=== PATIENT | female | born 1960 | race Caucasian/White ===

== ENCOUNTER 2019-05-13 19:45 | Emergency (ER) | payer OTHER ==
[2019-05-13 20:07] VITALS: BP 122/74; PULSE 66
--- NOTE | 2019-05-13 21:48 | EDM.PDOC ---
ED HPI GENERAL MEDICAL PROBLEM - General Chief Complaint: Lower Extremity Injury/Pain Stated Complaint: possible broken ankle Time Seen by Provider: 05/13/19 21:11 Source of Information: Reports: Patient, RN Notes Reviewed History Limitations: Reports: No Limitations - History of Present Illness INITIAL COMMENTS - FREE TEXT/NARRATIVE: Patient is a 58-year-old female who presents to the ED for the evaluation of a possible broken ankle. Patient states that tonight she was walking and she tried jumping over a mud puddle and felt immediate pain in her left ankle. Patient does notice some pain and swelling to this area. This happened around one hour prior to arrival to the ER. The patient states that she did not take any sort of pain medications prior to arrival to the ER. She has not tried to put much weight on the ankle as well. Left Ankle Pain Score (Numeric/FACES): 5 - Related Data Allergies Allergy/AdvReac Type Severity Reaction Status Date / Time No Known Allergies Allergy Verified 05/13/19 20:03 Home Meds: Home Meds Calcium Carb/D3/Magnesium/Zinc [Oliver Mag Zinc + D Tablet] 1 tab PO DAILY [History] Cholecalciferol (Vitamin D3) [Vitamin D3] 1 tab PO DAILY 09/08/16 [History] Kelp 1 tab PO DAILY 09/08/16 [History] Lactobacillus Combination No.4 [Probiotic] 1 cap PO DAILY 09/08/16 [History] Multivitamin [Multi-Day Vitamins] 1 tab PO DAILY 09/08/16 [History] Progesterone, Micronized [Crinone] 1 applic TOP ASDIRECTED 09/08/16 [History] Past Medical History - Past Health History Medical/Surgical History: Denies Medical/Surgical History HEENT History: Reports: Impaired Vision Gastrointestinal History: Reports: Hemorrhoids Social & Family History - Tobacco Use Smoking Status *Q: Never Smoker - Caffeine Use Caffeine Use: Reports: Coffee Review of Systems - Review of Systems Review Of Systems: ROS reveals no pertinent complaints other than HPI. Musculoskeletal: Reports: Joint Pain (Left ankle), Joint Swelling (Left ankle) Skin: Reports: No Symptoms Neurological: Denies: Numbness, Tingling ED EXAM, GENERAL - Physical Exam Exam: See Below Exam Limited By: No Limitations General Appearance: Alert, WD/WN, No Apparent Distress Respiratory/Chest: No Respiratory Distress, Lungs Clear, Normal Breath Sounds, No Accessory Muscle Use, Chest Non-Tender Cardiovascular: Normal Peripheral Pulses, Regular Rate, Rhythm, No Murmur Peripheral Pulses: 3+: Radial (L), Radial (R), Dorsalis Pedis (L), Dorsalis Pedis (R) Extremities: Normal Inspection, Normal Range of Motion, Normal Capillary Refill , Joint Swelling (mild swelling appreciated to Left ankle) Neurological: Alert, Oriented, Normal Cognition, No Motor/Sensory Deficits Psychiatric: Normal Affect, Normal Mood Skin Exam: Warm, Dry, Intact, Normal Color, No Rash ED TRAUMA EXTREMITY PROCEDURES - Splinting Left Lower Extremity Splint Site: left lower leg Pre-Procedure NV Status: Normal Post-Procedure NV Status: Normal Splint Material: Boot Orthotic Applied & Form Fitted By: Nurse Provider Post-Splint Application NV Check: NV Status Normal, Good Position Complications: No Course - Vital Signs Last Recorded V/S: Last Vital Signs Temp 99.1 F 05/13/19 20:03 Pulse 66 05/13/19 20:03 Resp 16 05/13/19 20:03 BP 122/74 05/13/19 20:03 Pulse Ox 97 05/13/19 20:03 - Orders/Labs/Meds Orders: Active Orders 24 hr Category Date Time Status Ankle Min 3V Lt [CR] Stat Exams 05/13/19 20:19 Taken DME for Discharge [COMM] Routine Oth 05/13/19 21:41 Ordered - Re-Assessments/Exams Free Text/Narrative Re-Assessment/Exam: 05/13/19 21:45 Patient presents to the ER for evaluation of a left ankle injury. X-rays were obtained at time of triage, and demonstrated a distal fibular fracture, this is stable in nature, and not displaced, x-ray was reviewed by myself and Dr. Guevara, he recommends putting the patient in a walking boot for initial management to see if this will provide her enough relief. I will give her some pain medications to deal with the pain is not relieved by Tylenol or ibuprofen alone. Departure - Departure Time of Disposition: 21:48 Disposition: Home, Self-Care 01 Condition: Fair Clinical Impression: Fibula fracture Qualifiers: Encounter type: initial encounter Fibula location: distal Fracture type: closed Fracture morphology: other fracture Laterality: left Qualified Code(s): S82.832A - Other fracture of upper and lower end of left fibula, initial encounter for closed fracture - Discharge Information *PRESCRIPTION DRUG MONITORING PROGRAM REVIEWED*: No *COPY OF PRESCRIPTION DRUG MONITORING REPORT IN PATIENT MACK: No Instructions: Fibular Fracture Rehab-SportsMed Referrals: Aliza Tony MD [Primary Care Provider] - Forms: ED Department Discharge Additional Instructions: You have been evaluated in the ED for your left ankle injury. Your x-ray demonstrated a distal fibular fracture Please use ice as tolerated to the affected area. You may take Tylenol 500 mg or ibuprofen 600mg q6 hrs for pain relief. Please do so until you have a tolerable level of pain with activity. Do not exceed 4000mg tylenol, Do not exceed 3200mg ibuprofen in a 24 hour time period. Please call Ortho for follow-up and further evaluation Dr. Dinero is our orthopedic surgeon, his office number is [phone]. Please call and set up an appointment as soon as possible for further management. Please return to ED if your symptoms should change or worsen. - My Orders Last 24 Hours: My Active Orders 05/13/19 20:19 Ankle Min 3V Lt [CR] Stat 05/13/19 21:41 DME for Discharge [COMM] Routine - Assessment/Plan Last 24 Hours: My Active Orders 05/13/19 20:19 Ankle Min 3V Lt [CR] Stat 05/13/19 21:41 DME for Discharge [COMM] Routine
--- NOTE | 2019-05-15 06:46 | CR ---
Left ankle: Four views of the left ankle were obtained. Comparison: No previous ankle exam. Fracture is identified within the distal diaphysis of the fibula. Alignment is anatomic. Ankle mortise is symmetric. No additional fracture or other bony abnormality is seen. Soft tissue swelling is present. Impression: 1. Nondisplaced distal fibular shaft fracture with soft tissue swelling. Diagnostic code #3
== END 2019-05-13 22:22 | disposition home or self-care (01) ==
LOC: JD.ED 19:45
DX: S82.832A Other fracture of upper and lower end of left fibula, initial encounter for closed fracture (principal); Y93.39 Activity, other involving climbing, rappelling and jumping off
CPT/HCPCS: 73610-26-LT; 73610-LT; 99283-25